=== PATIENT | female | born 1995 | race Caucasian/White ===

== ENCOUNTER 2017-03-25 19:33 | Emergency (ER) | payer OTHER, BC ==
[2017-03-25 20:10] VITALS: BP 143/80
[2017-03-25] MEDS ORDERED: Diphtheria,Pertussis(Acell),Tetanus Vaccine 0.5 ML SDV IM ONE (20:14)
[2017-03-25] MEDS ORDERED: Lidocaine 1% 30 ML SDV INJECT ONE (20:14)
--- NOTE | 2017-03-25 20:42 | EDM.PDOC ---
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 [No Known Home Meds] 03/25/17 [History] ED ROS GENERAL - Review of Systems Review Of Systems: ROS reveals no pertinent complaints other than HPI. ED EXAM, SKIN/RASH Exam: See Below Exam Limited By: No Limitations General Appearance: Alert, WD/WN, No Apparent Distress Ears: Hearing Grossly Normal Throat/Mouth: Normal Voice, No Airway Compromise Head: Atraumatic Neck: Non-Tender, Full Range of Motion Respiratory/Chest: No Respiratory Distress Cardiovascular: Regular Rate, Rhythm GI/Abdominal: Soft, Non-Tender Extremities: Other (left thumb 1/2" lac' normal ROM, NV wnl, ) Neurological: Alert, Oriented, Normal Cognition, Normal Gait, No Motor/Sensory Deficits Psychiatric: Normal Affect, Normal Mood Skin: Warm, Dry Location, Skin: Upper Extremity, Right Lymphatic: No Adenopathy ED SKIN PROCEDURES - Laceration/Wound Repair Right Finger Lac/Wound length In cm: 1 (left thumb) Appearance: Subcutaneous, Linear, Clean Distal NVT: Neuro & Vascular Intact, No Tendon Injury Local Anesthesia - Lidocaine (Xylocaine): 1% Plain Local Anesthetic Volume: 5cc Skin Prep: Chlorhexidine (Hibiciens) Saline Irrigation (cc's): 20 Exploration/Debridement/Repair: Wound Explored, in a Bloodless Field, No Foreign Material Found Closed with: Sutures Suture Size: 4-0 Suture Type: Nylon, Interrupted Sterile Dressing Applied: Provider Tetanus Status Addressed: Yes Complications: No Course - Vital Signs Last Recorded V/S: Last Vital Signs Temp 36.6 C 03/25/17 20:06 Pulse 84 03/25/17 20:06 Resp 20 03/25/17 20:06 BP 143/80 H 03/25/17 20:06 Pulse Ox 100 03/25/17 20:06 - Orders/Labs/Meds Orders: Active Orders 24 hr Category Date Time Status Vaccines to be Administered [RC] PER UNIT ROUTINE Care 03/25/17 20:15 Active Meds: Medications Discontinued Medications Generic Name Dose Route Start Last Admin Trade Name Gricelda PRN Reason Stop Dose Admin Diphtheria/Tetanus/Acell Pertussis 0.5 ml 03/25/17 20:14 03/25/17 20:20 Adacel IM 03/25/17 20:15 0.5 ml .ONCE ONE Administration Lidocaine HCl 30 ml 03/25/17 20:14 03/25/17 20:21 Xylocaine-Mpf 1% INJECT 03/25/17 20:15 30 ml ONETIME ONE Administration Departure - Departure Time of Disposition: 20:39 Disposition: Home, Self-Care 01 Condition: Good Clinical Impression: Thumb laceration Qualifiers: Encounter type: initial encounter Damage to nail status: without damage Foreign body presence: without foreign body Laterality: left Qualified Code(s): S61.012A - Laceration without foreign body of left thumb without damage to nail , initial encounter - Discharge Information Instructions: Laceration Care, Adult, [id number] Forms: ED Department Discharge Additional Instructions: 1) keep wound clean dry covered 2) wound check 2-3 days 3) suture removal 10 days 4) recheck if looks infected - My Orders Last 24 Hours: My Active Orders 03/25/17 20:15 Vaccines to be Administered [RC] PER UNIT ROUTINE - Assessment/Plan Last 24 Hours: My Active Orders 03/25/17 20:15 Vaccines to be Administered [RC] PER UNIT ROUTINE
== END 2017-03-25 20:53 | disposition home or self-care (01) ==
LOC: DL.ED 19:33
DX: S61.012A Laceration without foreign body of left thumb without damage to nail, initial encounter (principal); W45.8XXA Other foreign body or object entering through skin, initial encounter
CPT/HCPCS: 12001; 90715; 96372; 99282; L3999

== ENCOUNTER 2018-04-18 07:21 | Inpatient (IN) | payer BC ==
[2018-04-18] MEDS ORDERED: Acetaminophen 325 MG Tab PO PRN ×2 (07:59→19:54)
[2018-04-18] MEDS ORDERED: Methylergonovine 0.2 MG/1 ML Amp IM PRN (07:59)
[2018-04-18] MEDS ORDERED: Lactated Ringers 500 ML IV ONE (07:59)
[2018-04-18] MEDS ORDERED: Carboprost Tromethamine 250 MCG/1 ML Amp IM PRN (07:59)
[2018-04-18] MEDS ORDERED: Lidocaine 1% 30 ML SDV INJECT PRN (07:59)
[2018-04-18] MEDS ORDERED: Ondansetron 4 MG/2 ML SDV IV PRN (07:59)
[2018-04-18] MEDS ORDERED: ceFAZolin 2 GM in Premix Bag 1 BAG IV ONE (07:59)
[2018-04-18] MEDS ORDERED: Sodium Chloride 0.9% 10 ML Syringe FLUSH PRN (07:59)
[2018-04-18] MEDS ORDERED: Misoprostol 400 MCG (4 X 100 MCG TAB) RECTAL PRN (07:59)
[2018-04-18] MEDS ORDERED: Tranexamic Acid 1,000 MG in Sodium Chloride 0.9% 100 ML IV PRN ×2 (07:59→19:54)
[2018-04-18] MEDS ORDERED: fentaNYL 100 MCG/2 ML SDV IVPUSH PRN (07:59)
[2018-04-18] MEDS ORDERED: Oxytocin/Normal Saline 30 UNIT/500 ML BAG IV SCH (08:00)
[2018-04-18] MEDS: Lactated Ringers 1,000 ML IV SCH ×3 (10:32→17:05)
[2018-04-18] MEDS ORDERED: Nalbuphine 10 MG/1 ML Vial IM PRN (15:06)
[2018-04-18] MEDS ORDERED: ceFAZolin 1 GM Vial IVPUSH SCH (16:15)
[2018-04-18] MEDS ORDERED: Bupivacaine 0.75%/D5W 2 ML Amp ONE (16:28)
[2018-04-18] MEDS ORDERED: fentaNYL 100 MCG/2 ML SDV ONE (16:28)
[2018-04-18] MEDS ORDERED: EPINEPHrine 1 MG/ML SDV ONE (16:29)
--- NOTE | 2018-04-18 16:52 | PCM.SN ---
- Free Text/Narrative Note: Intrathecal. sitting position, sterile prep and drape. 1% lidocaine w bicarb for skinwheal to L3 L4 interspace, introducer, 24 ga pencan x 2. Pos CSF, neg heme, neg parasthesia. 0.1 ml pf 1:1000 pf epi, 20 mcg pf sufenta, 0.4 ml pf NS , 30 mcg pf fentanyl, 6 mg of 0.75% pf bupivacaine injected after CSf aspiration. pt to L lateral position. Procedure time 1730 to 1805
[2018-04-18] MEDS ORDERED: Benzocaine/Menthol 20%-0.5% Spray 56 GM Canister TOP PRN (19:54)
[2018-04-18] MEDS ORDERED: Simethicone 80 MG Tab.Chew PO PRN (19:54)
--- NOTE | 2018-04-18 20:30 | PCM.DEL ---
L & D Note - General Info Date of Service: 04/18/18 Mother's Due Date: 04/25/18 (by exact LMP) - Delivery Note Labor: Augmented by Oxytocin Cervical Ripening Method: Oxytocin Delivery Outcome: Livebirth Infant Delivery Mode: Vacuum Extraction Presentation: Right Occiput Anterior (IMLVIA) Nuchal Cord: None (Cord wrapped around hand. ) Anesthesia Type: Intrathecal Amniotic Fluid Description: Clear Episiotomy Type: None Laceration: Labial (bilateral) Suture type: Vicryl Suture size: 4-0 Placenta: Intact, Expressed Cord: 3 Vessels Estimated Blood Loss: 300 Resuscitation Needed: No [place]: Bulb Syringe, Stimulated Provider: Lilliam Torres Score 1 min: 9 Score 5 min: 9 Second Stage Interventions: Reports: Encouragement Given, Laboring Down, Pushing Effectively, Pushing, McRobert's Position Vacuum Extractor Progress Note - Alternative Labor Strategies Considered Alternative Labor Strategies Considered:: Reports: Yes Strategies Considered:: Reports: Contraction Intensity Adequate, Position Changes Used to Facilitate Rotation & Descent, Empty Bladder, Rest Indications Considered:: Reports: Yes Indications:: Reports: Suspicion of Immediate or Potential Compromise Time Out:: Reports: Yes - Patient Prepared Patient Prepared:: Reports: Yes Informed Consent:: Reports: Yes, Verbal Risks: Reports: Yes Risks Include:: Reports: Laceration, Shoulder Dystocia, Maternal Injury, Other Anesthesia/Analgesia Adequate:: Reports: Yes - Probability of Success High Probability of Success:: Reports: Yes Weight Estimated:: Reports: AGA Patient Diabetic:: Reports: No Pelvis Adequate:: Reports: Yes Asynclitic:: Reports: No - Application Time Maximum Application Time & Number of Pop-Offs Predetermined:: Reports: Yes Total Application Time (min): *max=20min: 2 Number of Times Cup Disengaged:: 0 Type of Vacuum Used:: Reports: Cup: Rigid Vacuum Extraction: Successful - Exit Strategy Exit strategy available:: Reports: Yes and resuscitation teams readily available:: Reports: Yes - General Info Date of Service: 04/18/18 - Patient Data Vitals - Most Recent: Last Vital Signs Temp 97.4 F 04/18/18 16:30 Pulse 73 04/18/18 18:30 Resp 16 04/18/18 18:15 BP 144/73 H 07/19/18 18:30 Pulse Ox Weight - Most Recent: 67.585 kg Lab Results Last 24 Hours: Laboratory Results - last 24 hr 04/18/18 04/18/18 04/18/18 Range/Units 08:57 16:15 16:15 WBC 9.8 9.5 (5.0-10.0) 10^3/uL RBC 4.03 L 4.12 L (4.2-5.4) 10^6/uL Hgb 12.8 13.0 (12.0-16.0) g/dL Hct 38.0 38.6 (37.0-47.0) % MCV 94.3 93.7 (80-100) fL MCH 31.8 31.6 (27.0-34.0) pg MCHC 33.7 33.7 (33.0-35.0) g/dL Plt Count 87 L 95 L (150-450) 10^3/uL BUN 6 L (7-18) mg/dL Creatinine 0.7 (0.6-1.3) mg/dL Est Cr Clr Drug Dosing 112.47 mL/min Estimated GFR (MDRD) > 60 Uric Acid 4.8 (2.6-7.2) mg/dL AST 36 (10-42) IU/L ALT 19 (10-60) IU/L Lactate Dehydrogenase 123 (91-180) IU/L Urine Color (YELLOW) Urine Appearance (CLEAR) Urine pH (5.0-9.0) Ur Specific [place] (1.005-1.030) Urine Protein (NEGATIVE) Urine Glucose (UA) (NEGATIVE) Urine Ketones (NEGATIVE) Urine Occult Blood (NEGATIVE) Urine Nitrite (NEGATIVE) Urine Bilirubin (NEGATIVE) Urine Urobilinogen (0.2-1.0) mg/dL Ur Leukocyte Esterase (NEGATIVE) Ur Random Creatinine mg/dL U Random Total Protein (0.00-9.9) mg/dL Protein/Creatinin Ratio 04/18/18 04/18/18 Range/Units 17:55 17:55 WBC (5.0-10.0) 10^3/uL RBC (4.2-5.4) 10^6/uL Hgb (12.0-16.0) g/dL Hct (37.0-47.0) % MCV (80-100) fL MCH (27.0-34.0) pg MCHC (33.0-35.0) g/dL Plt Count (150-450) 10^3/uL BUN (7-18) mg/dL Creatinine (0.6-1.3) mg/dL Est Cr Clr Drug Dosing mL/min Estimated GFR (MDRD) Uric Acid (2.6-7.2) mg/dL AST (10-42) IU/L ALT (10-60) IU/L Lactate Dehydrogenase (91-180) IU/L Urine Color Yellow (YELLOW) Urine Appearance Clear (CLEAR) Urine pH 7.0 (5.0-9.0) Ur Specific [place] 1.015 (1.005-1.030) Urine Protein 30 H (NEGATIVE) Urine Glucose (UA) Negative (NEGATIVE) Urine Ketones 80 H (NEGATIVE) Urine Occult Blood Moderate H (NEGATIVE) Urine Nitrite Negative (NEGATIVE) Urine Bilirubin Negative (NEGATIVE) Urine Urobilinogen 0.2 (0.2-1.0) mg/dL Ur Leukocyte Esterase Negative (NEGATIVE) Ur Random Creatinine 69 mg/dL U Random Total Protein 21 H (0.00-9.9) mg/dL Protein/Creatinin Ratio 0.30 Med Orders - Current: Current Medications Acetaminophen (Tylenol) 650 mg PO Q6H PRN PRN Reason: mild pain or fever Benzocaine/Menthol (Dermoplast Pain Relief [place]) 0 gm TOP Q4H PRN PRN Reason: Perineal comfort measures Carboprost Tromethamine (Hemabate Ds) 250 mcg IM ASDIRECTED PRN PRN Reason: HEMORRHAGE Cefazolin Sodium (Ancef) 1 gm IVPUSH Q8H [facility] Last Admin: 04/18/18 16:16 Dose: 1 gm Docusate Sodium (Colace) 100 mg PO BID PRN PRN Reason: Constipation Fentanyl (Sublimaze) 50 mcg IVPUSH Q1H PRN PRN Reason: Pain (moderate 4-6) Lactated Ringer's (Ringers, Lactated) 1,000 mls @ 125 mls/hr IV ASDIRECTED THERESA Last Admin: 04/18/18 17:05 Dose: 125 mls/hr Oxytocin/Sodium Chloride (Pitocin In Ns 30 Unit/500 Ml) 30 unit in 500 mls @ 500 mls/hr IV TITRATE THERESA; Protocol Last Titration: 04/18/18 19:46 Dose: 250 munits/min, 250 mls/hr Tranexamic Acid 1,000 mg/ (Sodium Chloride) 110 mls @ 660 mls/hr IV ONETIME PRN PRN Reason: Bleeding Ibuprofen (Motrin) 600 mg PO Q6H PRN PRN Reason: Mild Pain or Fever Lidocaine HCl (Xylocaine-Mpf 1%) 10 ml INJECT ASDIRECTED PRN PRN Reason: Perineal Repair Methylergonovine Maleate (Methergine) 0.2 mg IM ASDIRECTED PRN PRN Reason: Hemorrhage Misoprostol (Cytotec) 800 mcg RECTAL ASDIRECTED PRN PRN Reason: Hemorrhage Nalbuphine HCl (Nubain) 20 mg IM ONETIME PRN PRN Reason: Pain Last Admin: 04/18/18 15:43 Dose: 20 mg Ondansetron HCl (Zofran) 4 mg IV Q4H PRN PRN Reason: Nausea/Vomiting Last Admin: 04/18/18 16:16 Dose: 4 mg Prenat Multivit/[place]/Iron/Folic Ac ( Plus Iron) 1 each PO DAILY THERESA Simethicone (Simethicone) 80 mg PO Q4H PRN PRN Reason: Gas Sodium Chloride (Saline Flush) 10 ml FLUSH ASDIRECTED PRN PRN Reason: Keep Vein Open Discontinued Medications Acetaminophen (Tylenol) 650 mg PO Q4H PRN PRN Reason: Pain (Mild 1-3) and fever Bupivacaine HCl/Dextrose (Marcaine 0.75% Spinal) Confirm Administered Dose 2 ml .ROUTE .STK-MED ONE Stop: 04/18/18 16:29 Last Admin: 04/18/18 17:00 Dose: Not Given Epinephrine HCl (Adrenalin) Confirm Administered Dose 1 mg .ROUTE .STK-MED ONE Stop: 04/18/18 16:30 Last Admin: 04/18/18 17:02 Dose: Not Given Fentanyl (Sublimaze) Confirm Administered Dose 100 mcg .ROUTE .STK-MED ONE Stop: 04/18/18 16:29 Last Admin: 04/18/18 17:00 Dose: Not Given Cefazolin Sodium/Dextrose 2 gm (/ Premix) 50 mls @ 100 mls/hr IV ONETIME ONE Stop: 04/18/18 08:28 Last Admin: 04/18/18 08:43 Dose: 100 mls/hr Lactated Ringer's (Ringers, Lactated) 500 mls @ 999 mls/hr IV .BOLUS ONE Stop: 04/18/18 08:29 Last Admin: 04/18/18 20:13 Dose: Not Given Tranexamic Acid 1,000 mg/ (Sodium Chloride) 110 mls @ 660 mls/hr IV ONETIME PRN PRN Reason: Bleeding Sodium Bicarbonate (Sodium Bicarbonate 4.2%) Confirm Administered Dose 5 meq .ROUTE .STK-MED ONE Stop: 04/18/18 16:31 Last Admin: 04/18/18 17:02 Dose: Not Given Sufentanil Citrate (Sufenta) Confirm Administered Dose 50 mcg .ROUTE .STK-MED ONE Stop: 04/18/18 16:30 Last Admin: 04/18/18 17:02 Dose: Not Given - Problem List Review Problem List Initiated/Reviewed/Updated: Yes - My Orders Last 24 Hours: My Active Orders 04/18/18 07:59 Patient Status [ADT] Routine Communication Order [RC] ASDIRECTED Notify Provider Vital Signs OB [RC] ASDIRECTED Notify Provider [RC] PRN Up ad Marilyn [RC] ASDIRECTED Vital Signs [RC] PER UNIT ROUTINE Carboprost Tromethamine [Hemabate DS] 250 mcg IM ASDIRECTED PRN Lidocaine 1% [Xylocaine-MPF 1%] 10 ml INJECT ASDIRECTED PRN Methylergonovine [Methergine] 0.2 mg IM ASDIRECTED PRN Ondansetron [Zofran] 4 mg IV Q4H PRN Sodium Chloride 0.9% [Saline Flush] 10 ml FLUSH ASDIRECTED PRN fentaNYL [Sublimaze] 50 mcg IVPUSH Q1H PRN miSOPROStol [Cytotec] 800 mcg RECTAL ASDIRECTED PRN Saline Lock Insert [OM.PC] Routine 04/18/18 08:00 Lactated Ringers [Ringers, Lactated] 1,000 ml IV ASDIRECTED Oxytocin/Normal Saline [Pitocin in NS 30 UNIT/500 ML] 30 unit in 500 ml IV TITRATE 04/18/18 15:06 Nalbuphine [Nubain] 20 mg IM ONETIME PRN 04/18/18 16:15 ceFAZolin [Ancef] 1 gm IVPUSH Q8H 04/18/18 17:55 PROTEIN/CREATININE RATIO,URINE [URCHEM] Routine UA W/O MICROSCOPIC [URIN] Routine 04/18/18 19:53 Patient Status Manage Transfer [TRANSFER] Routine 04/18/18 19:54 Up ad Marilyn [RC] ASDIRECTED Consult to Oral And Maxillofacial Surgeon [CONS] Routine Acetaminophen [Tylenol] 650 mg PO Q6H PRN Benzocaine/Menthol [Dermoplast Pain Relief [place]] See Dose Instructions TOP Q4H PRN Docusate Sodium [Colace] 100 mg PO BID PRN Ibuprofen [Motrin] 600 mg PO Q6H PRN Simethicone 80 mg PO Q4H PRN Tranexamic Acid [Cyklokapron] 1,000 mg Sodium Chloride 0.9% [Normal Saline] 100 ml IV ONETIME Assess Lochia [WOMSER] Per Unit Routine Assess Uterine Involution [WOMSER] Per Unit Routine Breast Pump [WOMSER] Per Unit Routine Ice Therapy [OM.PC] Per Unit Routine Perineal Care [OM.PC] Per Unit Routine Sitz Bath [OM.PC] Per Unit Routine 04/18/18 19:56 Vital Signs [RC] ,20 04/18/18 Lunch Clear Liquid Diet [DIET] 04/19/18 09:00 Vit with Ca/FA/Iron [ Plus Iron] 1 each PO DAILY 04/20/18 06:00 CBC W/O DIFF,HEMOGRAM [HEME] Routine
--- NOTE | 2018-04-18 21:25 | DEL ---
DATE: 04/18/2018 PREPROCEDURE DIAGNOSES: 1. A 39 and 0/7 weeks' intrauterine . 2. 1, para 0. 3. Spontaneous rupture of membranes. 4. Blood type O positive, rubella immune, group B strep positive. 5. Penicillin allergy. 6. Borderline low ELENA. 7. Mild preeclampsia. 8. Gestational thrombocytopenia likely due to the mild preeclampsia. POSTPROCEDURE DIAGNOSES: 1. A 39 and 0/7 weeks' intrauterine . 2. 1, para 0. 3. Spontaneous rupture of membranes. 4. Blood type O positive, rubella immune, group B strep positive. 5. Penicillin allergy. 6. Borderline low ELENA. 7. Mild preeclampsia. 8. Gestational thrombocytopenia likely due to the mild preeclampsia. 9. Status post vacuum-assisted vaginal delivery of a viable male infant. 10. bradycardia during stage II. BRIEF COURSE: A 23-year-old female with the above-listed diagnoses had spontaneous rupture of membranes at 6:50 a.m. After monitoring for at least 2 hours, she still was not having adequate contractions and Pitocin augmentation initiated. She made it to complete after about 11-1/2 hours. She had an intrathecal placed at 5 cm dilated, and quickly went on to complete and then was allowed to labor down as the baby was tolerating things better. Mother's blood pressures have been elevated during labor and were getting more elevated as labor progressed. PIH labs performed and showed urine protein creatinine ratio of 0.3. Platelets were 87 on admission, 95 on recheck, and she did not have any symptoms of preeclampsia. However, with the overall picture, diagnosis of mild preeclampsia was made. During stage II, mother's pushing efforts were good. Started to the develop bradycardia after each contraction, which progressively was taking longer and longer for recovery. Ultimately with the patient , heart tones were staying down into the 80s, vacuum then applied. She pushed with another contraction and then heart tones could not be auscultated, so she pushed without that contraction which expedited delivery. The vacuum was on for a total of 2 minutes basically through 1 contraction and 1 set of push without a contraction resulting in successful delivery. To the green zone during pulls reduced to the yellow briefly when we thought we could rest between contractions. Prior to application of the vacuum. Discussed with the patient and her boyfriend the indications, risks, benefits, and alternatives. bradycardia and that this would increase risk of potential maternal injury including but not limited to, vaginal lacerations, perineal lacerations, increase risk of injury to the baby including scalp hematomas as well as deeper intracranial bleeding as well as scalp laceration, potential for increased risk of shoulder dystocia, need to proceed with section. Mother's bladder had just recently been emptied and she was voiding well. The operating room crew would be readily available and her anesthesia was adequate as the intrathecal was still working very well and their questions were answered and the consent discussion was had at least 15 minutes prior to actually needing the vacuum. DESCRIPTION OF PROCEDURE: The patient in dorsal lithotomy position, and vacuum applied, she delivered a viable male infant in the OA position over intact perineum. Baby had vigorous cry and he was dried and stimulated. Mouth and nose were then bulb suctioned and vacuum removed from the scalp. Baby then placed up on mother's abdomen after being dried off. Delayed cord clamping performed and cord blood sample obtained. Labia and vagina were inspected. The perineal area was intact. There were 2 anterior labial lacerations fairly superficial and repaired with 4-0 Vicryl in a subcuticular fashion and this did not require any additional lidocaine. The placenta was delivered by gentle cord traction and concomitant uterine massage after approximately 27 minutes. Cervix inspected and intact. Vagina intact. COMPLICATIONS: None. ESTIMATED BLOOD LOSS: 300 mL. FINDINGS: Viable male infant. scores of 9 and 9. Weight 3200 g, 7 pounds 1 ounce. [facility] /[id number] [facility] HOSPITALLeonel
[2018-04-18] MEDS: Docusate Sodium 100 MG Cap PO PRN (21:52)
[2018-04-18] MEDS: Labetalol 100 MG Tab PO SCH (21:52)
--- NOTE | 2018-04-18 21:52 | HP ---
CHIEF COMPLAINT: Spontaneous rupture. HISTORY OF PRESENT ILLNESS: A 23-year-old, 1, para 0, currently at 39 and 0/7 weeks' gestation based on last menstrual. Reports large gush of clear fluid at 10 minutes until 7:00 this morning, and presents for evaluation reporting not really feeling anything in the way of contractions. No vaginal bleeding. movement has been good. No symptoms of preeclampsia. No nausea, vomiting, headaches, blurry vision, chest pain, shortness of breath, change in her swelling, and no other acute concerns at this time. HISTORY: Reviewed. Dating is by exact last menstrual period and consistent with her 20 week ultrasound. Growth ultrasound performed at 34 weeks gestation revealed a borderline ELENA of 8, and normal growth consistent with dates. Followup ELENA has remained borderline low until 2 weeks ago and it was back to normal. Blood type is O positive. Antibody screen negative. Rubella positive. Syphilis serology nonreactive. Urine culture negative. Hepatitis B negative. HIV negative. Gonorrhea and chlamydia negative. TSH normal at 0.37. The wet prep negative. One-hour glucose tolerance test abnormal at 146. Three-hour test normal. Group B strep was positive and sensitive to clindamycin and vancomycin. She did receive her Tdap and influenza vaccines during the . PAST MEDICAL HISTORY: 1. Daily headaches. 2. Chickenpox as a child. 3. Three migraines during her lifetime. 4. Rare palpitations with previous normal echocardiogram. 5. Primary Raynaud's phenomenon. 6. Menarche at age 13. 7. Menses every 30 days and flow every 4 to 5 days. 8. Abnormal Pap smear with ASCUS and high-risk HPV. PAST SURGICAL HISTORY: Negative. FAMILY HISTORY: Mother with migraines. Father with hypertension. Three brothers alive and well. Maternal grandmother with colon cancer. Maternal grandfather with pancreatic cancer. Paternal grandparents without known illnesses. Paternal grandfather is a twin. Great maternal aunts have breast cancer. Maternal aunt and paternal uncle have had twins. There is no family history of any defects, cystic fibrosis, seizures, bleeding problems, clotting disorders, anesthesia problems, or Down syndrome. SOCIAL HISTORY: The patient is single. Does not use any tobacco, and last alcohol exposure was prior to 3 weeks estimated gestational age. 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 This will be the first child for each of them. He and his family are reportedly healthy. MEDICATIONS: vitamin 1 daily. ALLERGIES: Amoxicillin causes rash. REVIEW OF SYSTEMS: As per the history of present illness. No recent fever, chills, nausea, vomiting, diarrhea, constipation, skin rashes, cough, colds, or other acute symptoms. PHYSICAL EXAMINATION: Vital Signs: Blood pressure 148/95, pulse of 69, temperature is 97.7. HEENT: Unremarkable. Neck: Supple without adenopathy. Heart: Regular without murmur. Lungs: Clear to auscultation bilaterally. Abdomen: Soft. Baby palpates cephalic. heart tones tracing 125 beats per minute at baseline with moderate dxcw-ph-rabq variability. [place] shows contractions about every 7 minutes. Cervix exam 1.5 cm dilated, 80% effaced per nurse's exam. Extremities: No edema, erythema, or tenderness noted. LABORATORY DATA: Initial labs hemoglobin 12.8, platelet count 87. ASSESSMENT: 1. A 39 and 0/7 weeks' intrauterine . 2. Spontaneous rupture of membranes not readily followed by contractions. 3. Gestational thrombocytopenia. 4. Elevated blood pressure on admission. Consider evaluation of preeclampsia if it persists. 5. Blood type O positive, rubella immune. 6. Group B strep positive with penicillin allergy. 7. Borderline low ELENA history, reported copious amounts of fluid today. 8. ASCUS with positive high-risk HPV on Pap smear. 9. Gestational thrombocytopenia. PLAN: Admit for labor and delivery. Have her up and walking initially and see if contractions will kick in, if not, then we will need to augment with Pitocin. We will monitor those blood pressures and if they persist, perform preeclampsia evaluation. She has a history of rash from amoxicillin, so she is a candidate for treatment of the group B strep with Ancef. We will monitor closely for development of any allergic symptoms. The patient's questions have been answered. [facility] /[id number] KARI
[2018-04-18] MEDS: Ibuprofen 600 MG Tab PO PRN (23:20)
[2018-04-19] MEDS: Ibuprofen 600 MG Tab PO PRN ×2 (05:49→16:36)
[2018-04-19] MEDS: Labetalol 100 MG Tab PO SCH ×2 (09:17→20:34)
[2018-04-19] MEDS: Prenatal Multivitamin with Calcium/Folic Acid/Iron Tab PO SCH (09:18)
[2018-04-19] MEDS: Docusate Sodium 100 MG Cap PO PRN ×2 (09:18→20:34)
[2018-04-20] MEDS: Labetalol 100 MG Tab PO SCH (09:00)
[2018-04-20] MEDS: Docusate Sodium 100 MG Cap PO PRN (09:00)
[2018-04-20] MEDS: Prenatal Multivitamin with Calcium/Folic Acid/Iron Tab PO SCH (09:00)
[2018-04-20 09:01] VITALS: BP 146/80
[2018-04-20] MEDS: Ibuprofen 600 MG Tab PO PRN (09:01)
[2018-04-20] MEDS ORDERED: Bupivacaine 0.75%/D5W 2 ML Amp INJECT ONE (13:14)
[2018-04-20] MEDS ORDERED: fentaNYL 100 MCG/2 ML SDV ITHECAL ONE (13:14)
--- NOTE | 2018-04-22 08:50 | PN ---
DATE: 04/19/2018 SUBJECTIVE: Postdelivery day #1, status post vacuum-assisted vaginal delivery because of bradycardia. The patient reports that she has been doing well. She has been ambulating and tolerating regular diet. Denies any symptoms of preeclampsia such as headache, blurry vision, chest pain, shortness of breath, nausea, vomiting, lower extremity edema, or right upper quadrant pain. She is voiding without difficulties, has not yet had a bowel movement, happy that the labial swelling has decreased significantly. She has elected to express milk and bottle feed her baby rather than directly, and otherwise, denies any concerns this morning. OBJECTIVE: Vital Signs: Temperature is 97.2, pulse 75, blood pressure 114/69, respiratory rate of 16, and O2 saturations of 97%. Of note, after delivery, blood pressures were running in the 140s and 150s over high 80s and 90s, and she was started on labetalol last night and has been tolerating that well. Heart: Regular without obvious murmur. Lungs: Clear to auscultation bilaterally. Abdomen: Soft and nontender. Fundus is firm and at least 4 below the umbilicus. Labial swelling is mild at this time. Extremities: No edema, erythema, or tenderness noted. LABORATORY DATA: The patient's labs reviewed and discussed with her that she did rule in for preeclampsia with urine protein-creatinine ratio of 0.30 on a catheter urine sample coupled with her low platelets and rapid labor progress. ASSESSMENT: 1. 1, now para 1-0-0-1, status post vacuum-assisted vaginal delivery. 2. Blood type O positive, rubella immune, and group B Streptococcus positive, treated with Ancef during labor. 3. Mild preeclampsia. PLAN: Continue normal cares. Continue labetalol at this time and see how she continues to do. Anticipate discharge home tomorrow. Dr. Burrows will be covering in my absence, and he has been briefed on the patient's status. I will plan on seeing her in the office in a few days when she brings her baby in for a recheck, and we will get her blood pressures rechecked at that time. She has also been educated about the preeclampsia diagnosis and signs and symptoms to monitor for as well as anticipation of aspirin with her next to decrease her risk of recurrent preeclampsia. Her questions have been answered. [facility] /[id number]
== END 2018-04-20 13:15 | disposition home or self-care (01) | DRG 560 ==
LOC: DL.OBCHECK 07:21 → DL.OB 08:14 → OBSVTOIN 19:08 → DL.OB 19:08 → EDSTATUS 04-30 13:55
PROVIDERS: ADMIT Family Medicine; ATTEND Family Medicine
PROC: 10D07Z6 Extraction of Products of Conception, Vacuum, Via Natural or Artificial Opening (ICD-10-PCS; principal; 2018-04-18)
PROC: 0UQMXZZ Repair Vulva, External Approach (ICD-10-PCS; 2018-04-18)
PROC: 3E0S3GC Introduction of Other Therapeutic Substance into Epidural Space, Percutaneous Approach (ICD-10-PCS; 2018-04-18)
DX: O42.92 Full-term premature rupture of membranes, unspecified as to length of time between rupture and onset of labor (principal); Z3A.39 39 weeks gestation of pregnancy; Z37.0 Single live birth; O99.12 Other diseases of the blood and blood-forming organs and certain disorders involving the immune mechanism complicating childbirth; D69.6 Thrombocytopenia, unspecified; Z88.0 Allergy status to penicillin; O14.04 Mild to moderate pre-eclampsia, complicating childbirth; O99.824 Streptococcus B carrier state complicating childbirth; O76 Abnormality in fetal heart rate and rhythm complicating labor and delivery; O70.0 First degree perineal laceration during delivery; R87.610 Atypical squamous cells of undetermined significance on cytologic smear of cervix (ASC-US)
CPT/HCPCS: 36415; 59025; 59300; 59409; 81003; 82565; 82570; 83615; 84156; 84450; 84460; 84520; 84550; 85027; A9270-GY; J0690; J2300; J2405; J2590; J7120

== ENCOUNTER 2023-05-18 12:53 | Inpatient (IN) | payer BC, OTHER ==
[2023-05-18] MEDS ORDERED: Tranexamic Acid 1,000 MG in Sodium Chloride 0.9% 100 ML IV PRN ×2 (14:03→18:07)
[2023-05-18] MEDS ORDERED: Lidocaine 1% 30 ML SDV INJECT ONE (14:03)
[2023-05-18] MEDS ORDERED: Misoprostol 400 MCG (4 X 100 MCG TAB) RECTAL PRN ×2 (14:03→18:07)
[2023-05-18] MEDS ORDERED: fentaNYL 100 MCG/2 ML SDV IVPUSH PRN (14:03)
[2023-05-18] MEDS ORDERED: Methylergonovine 0.2 MG/1 ML Amp IM PRN (14:03)
[2023-05-18] MEDS ORDERED: Sodium Chloride 0.9% 10 ML Syringe FLUSH PRN ×2 (14:03→18:07)
[2023-05-18] MEDS ORDERED: Ondansetron 4 MG/2 ML SDV IVPUSH PRN (14:03)
[2023-05-18] MEDS ORDERED: Carboprost Tromethamine 250 MCG/1 ML Amp IM PRN ×2 (14:03→18:07)
[2023-05-18] MEDS ORDERED: Acetaminophen 325 MG Tab PO PRN (14:03)
[2023-05-18] MEDS ORDERED: ePHEDrine 50 MG/ML SDV IVPUSH PRN ×2 (14:13→16:58)
[2023-05-18] MEDS ORDERED: Phenylephrine HCl In 0.9% NaCl 1 MG/10 ML Syringe IVPUSH PRN ×2 (14:13→16:58)
[2023-05-18] MEDS ORDERED: Lactated Ringers 1,000 ML IV SCH (14:15)
[2023-05-18] MEDS ORDERED: Ropivacaine 200 MG in Premix Bag 1 BAG EPIDUR SCH ×2 (14:15→17:00)
[2023-05-18 14:35] LABS: HEMATOCRIT 38.5 % (37.0-47.0); HEMOGLOBIN 13.1 g/dL (12.0-16.0); MEAN CORPUSCULAR HEMOGLOBIN 31.9 pg (27.0-34.0); MEAN CORPUSCULAR VOLUME 93.7 fL (80-100); RED BLOOD CELL COUNT 4.11 10^6/uL (4.2-5.4); WHITE BLOOD CELL COUNT,WBC 10.9 10^3/uL (5.0-10.0)
[2023-05-18] MEDS: Oxytocin/Normal Saline 30 UNIT/500 ML BAG IV SCH ×2 (15:15→20:27)
[2023-05-18] MEDS: Lactated Ringers 1,000 ML IV ONE ×2 (16:29→20:41)
[2023-05-18] MEDS ORDERED: Bupivacaine 0.25% 10 ML SDV ONE ×2 (16:34→17:05)
[2023-05-18] MEDS ORDERED: fentaNYL 100 MCG/2 ML SDV ONE (16:34)
[2023-05-18] MEDS ORDERED: Zolpidem 5 MG Tab PO PRN (18:07)
[2023-05-18] MEDS ORDERED: Oxytocin 10 Units/1 ML SDV IM PRN (18:07)
[2023-05-18] MEDS ORDERED: Benzocaine/Menthol 20%-0.5% Spray 78 GM Cannister TOP PRN (18:07)
[2023-05-18] MEDS ORDERED: Simethicone 80 MG Tab.Chew PO PRN (18:07)
[2023-05-18] MEDS: Docusate Sodium 100 MG Cap PO PRN (20:17)
[2023-05-18] MEDS: Ibuprofen 800 MG Tab PO PRN (20:17)
[2023-05-18] MEDS: Acetaminophen 325 MG Tab PO PRN (20:53)
[2023-05-19] MEDS: Acetaminophen 325 MG Tab PO PRN ×4 (02:25→14:39)
[2023-05-19] MEDS: Ibuprofen 800 MG Tab PO PRN ×2 (05:45→14:40)
[2023-05-19] MEDS: Docusate Sodium 100 MG Cap PO PRN (08:42)
[2023-05-19 08:49] LABS: BASOPHILS PERCENT AUTO 0.2 % (0.0-1.0); EOSINOPHILS PERCENT AUTO 0.5 % (1.0-3.0); HEMOGLOBIN 12.9 g/dL (12.0-16.0); LYMPHOCYTES PERCENT AUTO 13.3 % (20.5-50.1); MEAN CORPUSCULAR HEMOGLOBIN 32.2 pg (27.0-34.0); MEAN CORPUSCULAR HGB CONC 33.9 g/dL (33.0-35.0); MEAN CORPUSCULAR VOLUME 94.8 fL (80-100); MONOCYTES PERCENT AUTO 4.9 % (2-8); NEUTROPHILS PERCENT AUTO 81.1 % (42.2-75.2); PLATELET COUNT,PLT 111 10^3/uL (150-450); RED BLOOD CELL COUNT 4.01 10^6/uL (4.2-5.4); WHITE BLOOD CELL COUNT,WBC 13.1 10^3/uL (5.0-10.0)
[2023-05-19 20:05] VITALS: BP 126/80; PULSE 74
== END 2023-05-19 19:45 | disposition home or self-care (01) | DRG 560 ==
LOC: DL.OB 14:02 → OBSVTOIN 18:01
PROVIDERS: ADMIT Obstetrics & Gynecology; ATTEND Obstetrics & Gynecology
PROC: 10D07Z6 Extraction of Products of Conception, Vacuum, Via Natural or Artificial Opening (ICD-10-PCS; principal; 2023-05-18)
PROC: 3E0R3BZ Introduction of Anesthetic Agent into Spinal Canal, Percutaneous Approach (ICD-10-PCS; 2023-05-18)
PROC: 00HU33Z Insertion of Infusion Device into Spinal Canal, Percutaneous Approach (ICD-10-PCS; 2023-05-18)
DX: O26.843 Uterine size-date discrepancy, third trimester (principal); Z37.0 Single live birth; Z3A.39 39 weeks gestation of pregnancy; O99.12 Other diseases of the blood and blood-forming organs and certain disorders involving the immune mechanism complicating childbirth; D69.6 Thrombocytopenia, unspecified
CPT/HCPCS: 01967; 36415; 59409; 85025; 85027; A9270-GY; J2590; J7120

== ENCOUNTER 2024-12-07 00:17 | Inpatient (IN) | payer BC, OTHER ==
[2024-12-07 00:39] LABS: HEMATOCRIT 38.9 % (37.0-47.0); HEMOGLOBIN 12.9 g/dL (12.0-16.0); MEAN CORPUSCULAR HEMOGLOBIN 30.9 pg (27.0-34.0); MEAN CORPUSCULAR HGB CONC 33.2 g/dL (33.0-35.0); MEAN CORPUSCULAR VOLUME 93.3 fL (80-100); RED BLOOD CELL COUNT 4.17 10^6/uL (4.2-5.4); WHITE BLOOD CELL COUNT,WBC 10.7 10^3/uL (5.0-10.0)
[2024-12-07] MEDS: Lactated Ringers 1,000 ML IV ONE (01:00)
[2024-12-07] MEDS ORDERED: Methylergonovine 0.2 MG/1 ML Amp IM PRN (01:08)
[2024-12-07] MEDS ORDERED: Sodium Chloride 0.9% 10 ML Syringe FLUSH PRN ×2 (01:08→06:37)
[2024-12-07] MEDS ORDERED: Acetaminophen 325 MG Tab PO PRN ×2 (01:08→06:37)
[2024-12-07] MEDS ORDERED: Carboprost Tromethamine 250 MCG/1 ML Amp IM PRN ×2 (01:08→06:37)
[2024-12-07] MEDS ORDERED: Tranexamic Acid 1,000 MG in Sodium Chloride 0.9% 100 ML IV PRN ×2 (01:08→06:37)
[2024-12-07] MEDS ORDERED: Ondansetron 4 MG/2 ML SDV IVPUSH PRN (01:08)
[2024-12-07] MEDS ORDERED: Oxytocin/Lactated Ringers 30 UNIT/500 ML BAG IV SCH (01:15)
[2024-12-07] MEDS: Lactated Ringers 1,000 ML IV SCH (01:35)
[2024-12-07] MEDS ORDERED: Phenylephrine HCl In 0.9% NaCl 1 MG/10 ML Syringe IVPUSH PRN (03:21)
[2024-12-07] MEDS ORDERED: ePHEDrine 50 MG/ML SDV IVPUSH PRN (03:21)
[2024-12-07] MEDS ORDERED: Ropivacaine 200 MG in Premix Bag 1 BAG EPIDUR SCH (03:30)
[2024-12-07] MEDS: Oxytocin/Normal Saline 30 UNIT/500 ML BAG IV SCH (06:15)
[2024-12-07] MEDS ORDERED: Benzocaine/Menthol 20%-0.5% Spray 78 GM Cannister TOP PRN (06:37)
[2024-12-07] MEDS ORDERED: Oxytocin 10 Units/1 ML SDV IM PRN (06:37)
[2024-12-07] MEDS ORDERED: Misoprostol 100 MCG Tab RECTAL PRN (06:37)
[2024-12-07] MEDS ORDERED: Simethicone 80 MG Tab.Chew PO PRN (06:37)
[2024-12-07] MEDS ORDERED: Mineral Oil/Petrolatum/Phenylephrine/Shark Liver Oil Oint 57 GM Tube TOP PRN (11:06)
[2024-12-07] MEDS: Hydrocortisone 2.5% Crm 30 GM Tube TOP PRN (11:18)
[2024-12-07] MEDS: Witch Hazel Medicated Pads 100/Jar TOP PRN (11:20)
[2024-12-07] MEDS: Ibuprofen 800 MG Tab PO SCH (15:00)
[2024-12-07] MEDS: Lidocaine 1% 30 ML SDV INJECT ONE (16:32)
[2024-12-07] MEDS: Prenatal Multivitamin with Calcium/Folic Acid/Iron Tab PO SCH (16:33)
[2024-12-08] MEDS: Docusate Sodium 100 MG Cap PO PRN (07:40)
[2024-12-08] MEDS ORDERED: Ropivacaine 100 ML EPIDUR ONE (09:39)
[2024-12-08] MEDS ORDERED: Oxytocin/Normal Saline 30 UNIT/500 ML BAG IV ONE (09:39)
[2024-12-08] MEDS ORDERED: fentaNYL 100 MCG/2 ML SDV EPIDUR ONE (09:39)
[2024-12-08] MEDS ORDERED: Lactated Ringers 1,000 ML IV ONE (09:39)
[2024-12-08] MEDS ORDERED: Ondansetron 4 MG/2 ML SDV IV ONE (09:39)
[2024-12-08] MEDS ORDERED: Phenylephrine 1% 10 MG/ML SDV IV ONE (09:39)
[2024-12-08] MEDS ORDERED: Tranexamic Acid 1,000 MG/10 ML Vial IV ONE (09:39)
[2024-12-08 14:01] VITALS: BP 124/82; PULSE 75
== END 2024-12-08 09:40 | disposition home or self-care (01) | DRG 560 ==
LOC: DL.OBCHECK 00:17 → DL.OB 00:47 → OBSVTOIN 06:11
PROVIDERS: ADMIT Family Medicine; ATTEND Family Medicine
PROC: 10E0XZZ Delivery of Products of Conception, External Approach (ICD-10-PCS; principal; 2024-12-07)
DX: O99.12 Other diseases of the blood and blood-forming organs and certain disorders involving the immune mechanism complicating childbirth (principal); Z37.0 Single live birth; D69.6 Thrombocytopenia, unspecified; O87.2 Hemorrhoids in the puerperium; O69.81X0 Labor and delivery complicated by cord around neck, without compression, not applicable or unspecified; Z3A.39 39 weeks gestation of pregnancy
CPT/HCPCS: 36415; 51702; 59409; 85027; A9270-GY; J2371; J2405; J2590; J2795; J3010; J7120

== ENCOUNTER 2025-01-10 23:50 | Emergency (ER) | payer BC, OTHER ==
[2025-01-11] MEDS ORDERED: Sodium Chloride 0.9% 10 ML Syringe FLUSH PRN (00:27)
[2025-01-11 00:41] LABS: BASOPHILS PERCENT AUTO 0.4 % (0.0-1.0); EOSINOPHILS PERCENT AUTO 5.3 % (1.0-3.0); HEMATOCRIT 37.3 % (37.0-47.0); HEMOGLOBIN 12.4 g/dL (12.0-16.0); LYMPHOCYTES PERCENT AUTO 46.4 % (20.5-50.1); MEAN CORPUSCULAR HEMOGLOBIN 30.7 pg (27.0-34.0); MEAN CORPUSCULAR HGB CONC 33.2 g/dL (33.0-35.0); MEAN CORPUSCULAR VOLUME 92.3 fL (80-100); MONOCYTES PERCENT AUTO 9.4 % (2-8); NEUTROPHILS PERCENT AUTO 38.5 % (42.2-75.2); PLATELET COUNT,PLT 172 10^3/uL (150-450); RED BLOOD CELL COUNT 4.04 10^6/uL (4.2-5.4); WHITE BLOOD CELL COUNT,WBC 7.5 10^3/uL (5.0-10.0)
[2025-01-11] MEDS: Lactated Ringers 1,000 ML IV SCH (01:21)
[2025-01-11 01:29] LABS: ALBUMIN 3.5 g/dL (3.4-5.0); ANION GAP 12.8 mEq/L (7-13); BILIRUBIN TOTAL 0.3 mg/dL (0.2-1.0); BUN/CREATININE RATIO 17.7 (No establ ref range); CALCIUM 9.3 mg/dL (8.5-10.1); CREATININE 0.79 mg/dL (0.55-1.02); EST CRCL DRUG DOSING (CG) 94.55 mL/min; POTASSIUM,K 3.8 mmol/L (3.5-5.1)
[2025-01-11] MEDS ORDERED: Water For Injection, Sterile 10 ML ONE (03:21)
[2025-01-11] MEDS ORDERED: Ondansetron 4 MG/2 ML SDV ONE (03:21)
[2025-01-11] MEDS ORDERED: dexmedeTOMIDine HCl 200 MCG/2 ML SDV ONE (03:21)
[2025-01-11] MEDS ORDERED: ceFAZolin 1 GM Vial ONE (03:21)
[2025-01-11] MEDS: Acetaminophen/oxyCODONE 325-5 MG Tab PO PRN (08:14)
[2025-01-11 08:52] VITALS: BP 119/73; PULSE 65
== END 2025-01-11 08:30 | disposition home or self-care (01) ==
LOC: DL.SDS 23:50 → DL.ED 23:50 → DL.SDS 01-11 08:30
DX: O72.1 Other immediate postpartum hemorrhage (principal); Z88.1 Allergy status to other antibiotic agents; Z79.899 Other long term (current) drug therapy
CPT/HCPCS: 36415; 76815; 80053; 85025; 99283; 99284; A9270-GY; J7120